=== PATIENT | male | born 1975 | race Caucasian/White ===

== ENCOUNTER 2017-08-01 23:33 | Emergency (ER) | payer SELFPAY ==
[2017-08-01 23:57] VITALS: RESP 18; TEMP 98.1
[2017-08-02] MEDS: SODIUM CHLORIDE 0.9% 1000ML 1,000 ML IV ONE (00:21)
[2017-08-02 01:50] VITALS: BP 122/85; PULSE 102; O2SAT 93
== END 2017-08-02 01:45 | disposition home or self-care (01) | DRG 641 ==
LOC: ED 23:33
DX: E16.2 Hypoglycemia, unspecified (principal); E10.69 Type 1 diabetes mellitus with other specified complication; Z79.4 Long term (current) use of insulin
CPT/HCPCS: 82962; 96365; 99283